=== PATIENT | female | born 1995 | race Caucasian/White ===

== ENCOUNTER 2017-11-02 12:52 | Emergency (ER) | payer SELFPAY ==
[2017-11-02 14:48] LABS: PLATELET COUNT 251 10^3/uL (150-400)
[2017-11-02] MEDS ORDERED: HYDROmorphONE/DILAUDID 1 MG/ML INJ IVP ONE (16:40)
[2017-11-02] MEDS ORDERED: ONDANSETRON 4 MG/2 ML VIAL IVP ONE (16:40)
--- NOTE | 2017-11-02 16:44 | EDPHY ---
H & P Time Seen by Provider: 11/02/17 14:51 HPI/ROS: HPI Lower abdominal pain. 22-year-old female, , by private vehicle with boyfriend. They are from [facility]. They currently live in [facility]. They are visiting this area. She presents with left lower quadrant pain which she describes as sharp and stabbing for the last 3 days. She has had some mild brownish vaginal spotting over the last 3 days. Her last menstrual period was September 28. She reports she gets her menstrual period every 5 weeks. No fever. No urinary complaints. She has had some mild nausea but no vomiting. ROS: Constitutional: No fever, no chills. No weakness. Eyes: No discharge. No changes in vision. ENT: No sore throat. No nasal congestion or rhinorrhea. Respiratory: No cough. No shortness of breath. Cardiac: No chest pain, no palpitations. Gastrointestinal: As above, no vomiting, no diarrhea. Genitourinary: No hematuria. No dysuria or increased frequency with urination. As above. Musculoskeletal: No back pain. No neck pain. No myalgias or arthralgias. Skin: No rashes. Neurological: No headache. No focal weakness or altered sensation. Past medical history: No significant past medical history. Social history: Nonsmoker. No alcohol. Here with her boyfriend. As above. Physical Exam: General Appearance: Alert, no distress. This patient is responding to questions appropriately and in full sentences. This patient appears well- hydrated and well-nourished. Eyes: Pupils equal and round no pallor or injection. No lid edema, erythema or injection. Respiratory: There are no retractions, lungs are clear to auscultation with good air movement bilaterally. Cardiovascular: Regular rate and rhythm. No murmur. Gastrointestinal: Abdomen is soft with moderate adnexal tenderness of the left lower quadrant, no masses, bowel sounds normal. No focal tenderness at McBurney 's point. No Swan sign. Neurological: Motor sensory function is grossly intact. Cranial nerves are normal. Gait is normal. Skin: Warm and dry, no rashes. Musculoskeletal: No CVA tenderness bilaterally. Extremities are symmetrical. All joints range without pain or impingement. Psychiatric: No agitation. No depression. Database: EKG: Imaging: Pelvic ultrasound: No evidence of IUP. No masses. The ovaries are unremarkable. The endometrium appears unusually thickened. Results were discussed with staff radiologist Dr. Ap Sanchez. CT scan of abdomen and pelvis with IV contrast: Significant for an intrauterine molar measuring 6 x 3.5 x 5 cm. Results were discussed with staff radiologist Dr. Ap Sanchez. Procedures: Emergency department course: Vital signs reviewed and are normal. She is afebrile. IV placed. She was started on IV normal saline. She was given 0.5 mg of IV hydromorphone for pain and 4 mg of IV Zofran for nausea. 6:00 p.m., spoke with on-call OBGYN Dr. Kitty Morgan. Case discussed in detail with her. Results of ultrasound discussed as well as excessively high beta HCG. Discussed likely foot of molar . Dr. Morgan is requesting CT imaging of the abdomen and pelvis with contrast enhancement. I discussed the reasoning for this study with the patient and her boyfriend. They consent. 7:15 p.m., spoke with on-call OBGYN Dr. Kitty Morgan. She reviewed the CT imaging. She agrees this is a molar . She has contacted [facility] and Dr. Ca Worrell. Plan will be to have the patient follow up in the office of Dr. Worrell on Sunday for evaluation and D and C by Dr. Worrell or [address] Morgan is concerned that significant bleeding may be a complication and she feels more comfortable if Dr. Worrell or Dr. Panchal performed the procedure. The patient has been stable throughout her emergency department course. No bleeding. Normal vital signs. Pain is well controlled. Abdomen has been soft on repeat exams. Dr. Morgan feels the patient can be safely discharged to home with follow-up on Sunday at [facility]. Strict return to emergency department precautions for vaginal bleeding and pain will be reviewed with the patient. 7:35 p.m., patient re-evaluated. Comfortable at this time. Repeat abdominal exam she is soft, with vague and mild tenderness left lower quadrant. Results of CT scan and plan of management as outlined above discussed with her and her boyfriend by echo vascular technologist. All of their questions were answered. She feels comfortable going home. She understands for follow-up. She understands return to emergency department precautions. She was discharged in good condition with her boyfriend. Differential Diagnosis: The differential diagnosis on this patient includes but is not limited to ectopic , recent completed . This represents a partial list of diagnoses considered. These considerations are based on history, physical exam, past history, reassessment and diagnostic testing. Smoking Status: Never smoked Constitutional: Initial Vital Signs Temperature (C) 36.9 C 11/02/17 13:13 Heart Rate 86 11/02/17 13:13 Respiratory Rate 18 11/02/17 13:13 Blood Pressure 114/73 11/02/17 13:13 O2 Sat (%) 99 11/02/17 13:13 O2 Delivery Mode Room Air Allergies/Adverse Reactions: No Known Allergies Allergy (Unverified 11/02/17 13:10) Home Medications: Medication Instructions Recorded Docusate Sodium [Colace 100 MG (*)] 100 mg PO TID #20 cap 11/02/17 Hydrocodone/APAP 5/325 [[place] 1 - 2 tab PO Q4-6PRN PRN #14 tab 11/02/17 5/325 (*)] Medical Decision Making - Data Points Laboratory Results: Laboratory Results 11/02/17 14:25 Medications Given: Discontinued Medications Hydromorphone HCl (Dilaudid) 0.5 mg IVP EDNOW ONE Stop: 11/02/17 16:41 Last Admin: 11/02/17 16:56 Dose: 0.5 mg Ondansetron HCl (Zofran) 4 mg IVP EDNOW ONE Stop: 11/02/17 16:41 Last Admin: 11/02/17 16:56 Dose: 4 mg Departure - Departure Disposition: Home, Routine, Self-Care Clinical Impression: Molar Condition: Good Instructions: Complete Hydatidiform Mole (ED) Additional Instructions: Read and follow provided instructions. Follow-up with [facility], either Dr. Worrell or Dr. Panchal as discussed on Sunday without fail for further evaluation and management. Call their office at 8:30 a.m. to 9:00 a.m. for appointment time. Take medication as prescribed for pain. Do not drive while taking this medication. Return to the emergency department immediately for worsening pain, vaginal bleeding, fever or other serious concerns. Gary y sigue las indicaciones siguientes: - Alva naomi kely de seguimiento con [facility], ya sea con la Dra. Worrell o Abdulkadir a pierre lo comentamos para el lunes por la maana sin falta para naomi evaluacion y manejo. Llama al consultorio de las 8:30 a 9:00 a.m. para hecer la kely. - Rosalva el medicamento a pierre te lo recetaron. No puedes conducir un auto mientras medicada. - Regresa a la dylan de emergencia inmediatamente si el dolor empeora, sangrado vaginal, fiebre u otras preocupaciones serias. Referrals: [facility] [Outside] - As per Instructions Ca Worrell MD [Medical Doctor] - As per Instructions Darshana Panchal MD [Medical Doctor] - As per Instructions Prescriptions: Docusate Sodium [Colace 100 MG (*)] 100 mg PO TID #20 cap Hydrocodone/APAP 5/325 [[place] 5/325 (*)] 1 - 2 tab PO Q4-6PRN PRN #14 tab PRN Reason: Pain, Moderate Print Language: Estonian
[2017-11-02] MEDS ORDERED: IOPAMIDOL (ISOVUE-300) 100 ML BTL ONE (17:41)
[2017-11-02 20:16] VITALS: BP 114/69; PULSE 71; RESP 18; TEMP 98.1; O2SAT 94
== END 2017-11-02 20:16 | disposition home or self-care (01) ==
DX: O02.0 Blighted ovum and nonhydatidiform mole (principal); Z3A.00 Weeks of gestation of pregnancy not specified
CPT/HCPCS: 96374; J1170; J2405; Q9967

== ENCOUNTER 2017-11-04 14:53 | Observation (INO) | payer SELFPAY ==
[2017-11-04] MEDS ORDERED: HYDROmorphONE/DILAUDID 1 MG/ML INJ ONE (15:18)
[2017-11-04] MEDS ORDERED: ONDANSETRON 4 MG/2 ML VIAL IVP ONE (15:19)
[2017-11-04] MEDS ORDERED: NS 1,000 ML IV ONE (15:19)
[2017-11-04] MEDS ORDERED: HYDROmorphONE/DILAUDID 1 MG/ML INJ IVP ONE (15:20)
--- NOTE | 2017-11-04 15:24 | EDPHY ---
H & P Time Seen by Provider: 11/04/17 15:02 HPI/ROS: HPI Lower abdominal pain. 22-year-old female by private vehicle with her boyfriend. I saw this patient on Sunday. She was diagnosed with a molar . Quantitative beta HCG at that time was 77,000. This molar was shown by CT scan to be within the uterus but here to the uterine wall. I spoke with OBGYN, Dr. joni Morgan at this time. Plan was going to be to have her follow up with Dr. Ca Worrell or Dr. Alcocer with [facility] on Sunday for a D and C. I prescribed her [place] for pain medication. Apparently she was not able to fill this prescription. She has been taking gacy-fuz-nvvvigl pain medication. She presents back to the emergency department now complaining of severe mid to left lower abdominal pain ROS: Constitutional: No fever, no chills. No weakness. Eyes: No discharge. No changes in vision. ENT: No sore throat. No nasal congestion or rhinorrhea. Respiratory: No cough. No shortness of breath. Cardiac: No chest pain, no palpitations. Gastrointestinal: As above, no vomiting, no diarrhea. Genitourinary: No hematuria. No dysuria or increased frequency with urination. Musculoskeletal: No back pain. No neck pain. No myalgias or arthralgias. Skin: No rashes. Neurological: No headache. No focal weakness or altered sensation. Past medical history: As above. Social history: Nonsmoker. No alcohol. Here with her boyfriend. Physical Exam: General Appearance: Alert, she appears uncomfortable. This patient is responding to questions appropriately and in full sentences. This patient appears well-hydrated and well-nourished. Eyes: Pupils equal and round no pallor or injection. No lid edema, erythema or injection. Respiratory: There are no retractions, lungs are clear to auscultation with good air movement bilaterally. Cardiovascular: Regular rate and rhythm. No murmur. Gastrointestinal: Abdomen is with left adnexal and mid lower suprapubic tenderness on palpation, no masses, bowel sounds normal. No focal tenderness at McBurney's point. No Swan sign. Neurological: Motor sensory function is grossly intact. Cranial nerves are normal. Gait is normal. Skin: Warm and dry, no rashes. Musculoskeletal: Neck is supple and nontender. Extremities are symmetrical. All joints range without pain or impingement. Psychiatric: No agitation. No depression. Database: EKG: Imaging: Pelvic ultrasound: No significant free fluid. No significant change from prior study 2 days ago. Results were discussed with staff radiologist Dr. Jose Johnson. Procedures: Emergency department course: IV was placed. Vital signs reviewed. Mildly tachypneic in triage. Vital signs otherwise normal. She is afebrile. She was started on IV normal saline with 1 L to be given over the next hour. She will be given IV hydromorphone for pain. She was also given 4 mg of IV Zofran for nausea. Repeat pelvic ultrasound will be obtained. Dr. Kitty MCNAIR who I spoke with regarding this patient on Sunday was paged. 4:05 p.m., spoke with XU Grace. She is coming to the emergency department now to evaluate this patient. 10 currently getting an ultrasound. Blood work reviewed. She is not anemic. 4:45 p.m., patient re-evaluated. Her pain is currently well controlled. Results of ultrasound and blood work discussed with her. Plan for admission and OBGYN consultation discussed with the patient using a vmware administrator. All of her questions were answered. 5:25 p.m., Dr. Morgan has seen and evaluated this patient. She will admit this patient and take her to the OR for D and C followed by further treatment if necessary. The patient has remained stable throughout her emergency department course. Her pain has been controlled. She was admitted under the care of Dr. Morgan in stable condition. Differential Diagnosis: The differential diagnosis on this patient includes but is not limited to molar , abdominal pain. Ectopic , ovarian torsion unlikely. This represents a partial list of diagnoses considered. These considerations are based on history, physical exam, past history, reassessment and diagnostic testing. Smoking Status: Never smoked Constitutional: Initial Vital Signs Temperature (C) 36.7 C 11/04/17 14:59 Heart Rate 99 11/04/17 14:59 Respiratory Rate 24 H 11/04/17 14:59 Blood Pressure 108/57 L 11/04/17 14:59 O2 Sat (%) 98 11/04/17 14:59 O2 Delivery Mode Room Air Allergies/Adverse Reactions: No Known Allergies Allergy (Verified 11/04/17 16:37) Home Medications: Medication Instructions Recorded Ibuprofen [Motrin (*)] 200 mg PO BID PRN 11/04/17 Medical Decision Making - Diagnostics Imaging Results: Imaging Impressions Pelvic/Renal Ultrasound 11/04/17 15:20 Impression: Persistent prominent heterogeneous endometrium with marketed hyperemia consistent with a molar . The emergency room physician is aware of this and an assembler has been consulted. Results called and discussed with Tera Hilton MD on November 04, 2017 at 1623 hours. - Data Points Laboratory Results: Laboratory Results 11/04/17 15:10 11/04/17 15:10 11/04/17 11/04/17 11/04/17 16:50 16:25 15:10 WBC RBC Hgb Hct MCV MCH MCHC RDW Plt Count MPV Neut % (Auto) Lymph % (Auto) Page % (Auto) Eos % (Auto) Baso % (Auto) Nucleat RBC Rel Count Absolute Neuts (auto) Absolute Lymphs (auto) Absolute Monos (auto) Absolute Eos (auto) Absolute Basos (auto) Absolute Nucleated RBC Immature Gran % Immature Gran # PT 15.6 SEC H SEC REJ (12.0-15.0) INR 1.22 H REJ (0.83-1.16) APTT 28.6 SEC SEC REJ (23.0-38.0) Sodium Potassium Chloride Carbon Dioxide Anion Gap BUN Creatinine Estimated GFR Glucose Calcium Total Bilirubin Conjugated Bilirubin Unconjugated Bilirubin AST ALT Alkaline Phosphatase Total Protein Albumin Beta HCG, Quant Patient ABO/Rh O POSITIVE Antibody Screen NEGATIVE 11/04/17 11/04/17 15:10 15:10 WBC 8.19 10^3/uL 10^3/uL (3.80-9.50) RBC 4.23 10^6/uL 10^6/uL (4.18-5.33) Hgb 12.7 g/dL g/dL (12.6-16.3) Hct 37.3 % L % (38.0-47.0) MCV 88.2 fL fL (81.5-99.8) MCH 30.0 pg pg (27.9-34.1) MCHC 34.0 g/dL g/dL (32.4-36.7) RDW 12.3 % % (11.5-15.2) Plt Count 260 10^3/uL 10^3/uL (150-400) MPV 9.1 fL fL (8.7-11.7) Neut % (Auto) 71.7 % % (39.3-74.2) Lymph % (Auto) 22.3 % % (15.0-45.0) Page % (Auto) 5.6 % % (4.5-13.0) Eos % (Auto) 0.1 % L % (0.6-7.6) Baso % (Auto) 0.2 % L % (0.3-1.7) Nucleat RBC Rel Count 0.0 % % (0.0-0.2) Absolute Neuts (auto) 5.86 10^3/uL 10^3/uL (1.70-6.50) Absolute Lymphs (auto) 1.83 10^3/uL 10^3/uL (1.00-3.00) Absolute Monos (auto) 0.46 10^3/uL 10^3/uL (0.30-0.80) Absolute Eos (auto) 0.01 10^3/uL L 10^3/uL (0.03-0.40) Absolute Basos (auto) 0.02 10^3/uL 10^3/uL (0.02-0.10) Absolute Nucleated RBC 0.00 10^3/uL 10^3/uL (0-0.01) Immature Gran % 0.1 % % (0.0-1.1) Immature Gran # 0.01 10^3/uL 10^3/uL (0.00-0.10) PT INR APTT Sodium 141 mEq/L mEq/L (135-145) Potassium 3.5 mEq/L mEq/L (3.5-5.2) Chloride 106 mEq/L mEq/L (97-110) Carbon Dioxide 24 mEq/l mEq/l (22-31) Anion Gap 11 mEq/L mEq/L (8-16) BUN 8 mg/dL mg/dL (7-23) Creatinine 0.6 mg/dL mg/dL (0.6-1.0) Estimated GFR > 60 Glucose 90 mg/dL mg/dL (70-100) Calcium 9.4 mg/dL mg/dL (8.5-10.4) Total Bilirubin 0.4 mg/dL mg/dL (0.1-1.4) Conjugated Bilirubin 0.2 mg/dL mg/dL (0.0-0.5) Unconjugated Bilirubin 0.2 mg/dL mg/dL (0.0-1.1) AST 31 IU/L IU/L (14-46) ALT 49 IU/L IU/L (9-52) Alkaline Phosphatase 53 IU/L IU/L (38-126) Total Protein 6.8 g/dL g/dL (6.3-8.2) Albumin 3.6 g/dL g/dL (3.5-5.0) Beta HCG, Quant 14886.00 mIU/mL H mIU/mL (0.00-4.83) Patient ABO/Rh Antibody Screen Medications Given: Discontinued Medications Doxycycline Hyclate (Doxycycline Hyclate) 100 mg PO ONCALL ONE PRN Reason: Protocol Stop: 11/04/17 17:21 Last Admin: 11/04/17 17:38 Dose: 100 mg Hydromorphone HCl (Dilaudid) 0.5 mg IVP EDNOW ONE Stop: 11/04/17 15:21 Last Admin: 11/04/17 15:23 Dose: 0.5 mg Sodium Chloride (Ns) 1,000 mls @ 0 mls/hr IV ONCE ONE; Wide Open PRN Reason: Protocol Stop: 11/04/17 15:20 Last Admin: 11/04/17 15:23 Dose: 1,000 mls Lactated Ringer's (Lr) 1,000 mls @ 0 mls/hr IV ONCALL ONE PRN Reason: TKO Stop: 11/04/17 17:21 Last Admin: 11/04/17 17:38 Dose: 1,000 mls Ondansetron HCl (Zofran) 4 mg IVP EDNOW ONE Stop: 11/04/17 15:20 Last Admin: 11/04/17 15:23 Dose: 4 mg Departure - Departure Disposition: [facility] Clinical Impression: Molar , Abdominal pain Condition: Fair
[2017-11-04 15:34] LABS: PLATELET COUNT 260 10^3/uL (150-400)
[2017-11-04] MEDS ORDERED: DOXYCYCLINE HYCLATE 100 MG CAP/TAB PO ONE (17:20)
[2017-11-04] MEDS ORDERED: ceFAZolin 2 GM/DEXTROSE 100 ML IV ONE (17:20)
[2017-11-04] MEDS ORDERED: LR 1,000 ML IV ONE (17:20)
[2017-11-04 17:34] LABS: INR 1.22 (0.83-1.16); PROTIME(PATIENT) 15.6 SEC (12.0-15.0)
[2017-11-04] MEDS ORDERED: LIDOCAINE 1% 300 MG/30 ML SDV ONE (17:34)
[2017-11-04] MEDS ORDERED: SILVER NITRATE APPLICATOR 1 APPL TP ONE (17:34)
[2017-11-04] MEDS ORDERED: DOXYCYCLINE HYCLATE 100 MG CAP/TAB ONE (17:36)
[2017-11-04] MEDS ORDERED: ceFAZolin 2 GM/SWFI 20 ML SYR IVP ONE (18:06)
[2017-11-04] MEDS ORDERED: ALBUTEROL 3 ML DEYVIAL IH PRN (18:14)
[2017-11-04] MEDS ORDERED: HYDROCODONE/APAP 5/325 TAB PO PRN ×2 (18:14→21:10)
[2017-11-04] MEDS ORDERED: NALOXONE HCL 0.4 MG/ML INJ IVP PRN (18:14)
[2017-11-04] MEDS ORDERED: ACETAMINOPHEN 500 MG TAB PO PRN (18:14)
[2017-11-04] MEDS ORDERED: PROMETHAZINE HCL 25 MG/ML INJ IVP PRN (18:14)
[2017-11-04] MEDS ORDERED: HYDROmorphONE/DILAUDID 1 MG/ML INJ IVP PRN (18:14)
[2017-11-04] MEDS ORDERED: fentaNYL 100 MCG/2 ML INJ IVP PRN (18:14)
[2017-11-04] MEDS ORDERED: OXYCODONE/APAP 5/325 TAB PO PRN (18:14)
[2017-11-04] MEDS ORDERED: ONDANSETRON 4 MG/2 ML VIAL IVP PRN (18:14)
--- NOTE | 2017-11-04 18:14 | PDANEPAE ---
ANE History of Present Illness D&C for molar ANE Past Medical History - Pulmonary History Hx Oxygen in Use at Home: No Hx Sleep Apnea: No - Endocrine History Hx Diabetes: No ANE Review of Systems Review of Systems: ANE Patient History - Allergies Allergies/Adverse Reactions: No Known Allergies Allergy (Verified 11/04/17 16:37) - Home Medications Home Medications: Ibuprofen [Motrin (*)] 200 mg PO BID PRN 11/04/17 [Last Taken 11/03/17] - NPO status NPO Since - Liquids (Date): 11/04/17 NPO Since - Liquids (Time): 11:00 NPO Since - Solids (Date): 11/04/17 NPO Since - Solids (Time): 11:00 - Smoking Hx Smoking Status: Never smoked ANE Labs/Vital Signs - Labs Result Diagrams: 11/04/17 15:10 11/04/17 15:10 - Vital Signs Blood Pressure: 106/60 Heart Rate: 73 Respiratory Rate: 16 O2 Sat (%): 96 Height: 163 cm Weight: 55 kg ANE Physical Exam - Airway Neck exam: FROM Mallampati Score: Class 2 Mouth exam: normal dental/mouth exam - Pulmonary Pulmonary: clear to auscultation - Cardiovascular Cardiovascular: regular rate and rhythym - ASA Status ASA Status: I, E ANE Anesthesia Plan Anesthesia Plan: GA w LMA
[2017-11-04] MEDS ORDERED: fentaNYL 100 MCG/2 ML INJ ONE ×2 (18:16→19:23)
[2017-11-04] MEDS ORDERED: PROPOFOL 200 MG/20 ML VIAL ONE (18:16)
[2017-11-04] MEDS ORDERED: LIDOCAINE 2% 5 ML SDV ONE (18:17)
[2017-11-04] MEDS ORDERED: DEXAMETHASONE 4 MG/ML VIAL ONE (18:30)
[2017-11-04] MEDS ORDERED: ONDANSETRON 4 MG/2 ML VIAL ONE (18:30)
[2017-11-04] MEDS ORDERED: RANITIDINE 50 MG/2 ML VIAL ONE (18:30)
[2017-11-04] MEDS ORDERED: ceFAZolin 2 GM/SWFI 2 GM/20 ML SYR IVP ONE (18:30)
--- NOTE | 2017-11-04 18:54 | GHP ---
[f rep st] PREOP HISTORY AND PHYSICAL DATE OF ADMISSION: 11/04/2017 The patient presents to the emergency room complaining of abdominal pain. The patient is a 22-year-old G1, P0, last menstrual period was approximately September 26, 2017 who presents to the emergency room today for complaints of left lower quadrant pain. The patient was seen in the emergency room on Sunday and had similar abdominal pain and was noted on ultrasound to have no adnexal masses, no intrauterine but to have some heterogeneous, hyperechoic material in the uterus. At that time, the quantitative hCG was 77,000. At that time, it was consistent with a molar . Again, on repeat ultrasound today, very similar ultrasound confirms no intrauterine , no adnexal mass, but uterus which appears to have some echogenic material. Quantitative hCG today has dropped down to 71,406. She states that her abdominal cramping started approximately and Sunday, at which time she came into the hospital on Sunday. Sunday was the first time that she a confirmed test. According to patient, she has never been before, no high-risk issues, no asthma, no diabetes, no heart problems, only breast surgery before for augmentation. Denies any allergies. PHYSICAL EXAMINATION: VITAL SIGNS: Stable. GENERAL: The patient appears alert, but slightly uncomfortable. CARDIOVASCULAR: Heart was regular rate and rhythm. No murmurs. ABDOMEN: With left adnexal, lower abdominal, and suprapubic tenderness. No mass. No abnormal bowel sounds. PELVIC: Speculum exam revealed cervix was closed. It revealed that she just had some brown mucous discharge, no blood. After speculum exam and bimanual exam took place, she did have some fundal uterine tenderness. The uterus appeared to be enlarged, approximately 15 weeks' size and anterior. There were no adnexal masses. SKIN: Dry and warm. EXTREMITIES: No abnormal range or tenderness in the calves. Labs WBC 8.19 H/H 12.7/37.3 plt 260 HCG 71,406 ASSESSMENT AND PLAN: A 22-year-old G1, P0, possible molar versus abnormal , no intrauterine . More than likely molar . Plan is to admit the patient to the hospital for a suction dilatation and curettage. Risks and benefits of procedure were thoroughly discussed with patient in Wallisian. Patient and agree. All questions were answered. /[id number]/MODL MTDD
--- NOTE | 2017-11-04 19:01 | POSTANESTH ---
Post Anesthetic Evaluation Cardiovascular Status: Normal, Stable Respiratory Status: Normal, Stable Level of Consciousness/Mental Status: Mildly Sleepy, Arousable Pain Control: Adequate, Prn Tx Ordered Nausea/Vomiting Control: Adequate, Prn Tx Ordered Complications Possibly Related to Anesthesia: None Noted
--- NOTE | 2017-11-04 19:07 | POSTOPPROG ---
Post Op Note Date of Operation: 11/04/17 Surgeon: Kitty Quintero Anesthesiologist: Dr. Petit Task Anesthesia: GET(General Endotracheal) Pre-op Diagnosis: Missed AB possible Molar Post-op Diagnosis: Same Indication: Low abdominal pain, spotting and enlarged uterus Procedure: Suction Dilation and Curettage Inf/Abcess present in the surg proc area at time of surgery?: No EBL: Minimal Total fluids administered: 700 mL Complications: none Specimen(s): Products of conception
--- NOTE | 2017-11-04 19:30 | GOP ---
[f rep st] OPERATIVE REPORT DATE OF OPERATION: 11/04/2017 SURGEON: Kitty Quintero MD ANESTHESIA: General. ANESTHESIOLOGIST: Damaso Patel DO. PREOPERATIVE DIAGNOSIS: 1. Missed . 2. Possible molar . POSTOPERATIVE DIAGNOSIS: 1. Missed . 2. Possible molar . PROCEDURE PERFORMED: Suction dilatation and curettage. FINDINGS: ESTIMATED BLOOD LOSS: Minimal, less than 50. INDICATIONS: Low abdominal pain, vaginal spotting, enlarged uterus, and elevated beta hCG level. DESCRIPTION OF PROCEDURE: The patient was taken to the operating room, where general anesthetic was placed. The patient was prepped and draped in the normal fashion and placed in the [facility]. A speculum was then placed within the vagina. The anterior lip of the cervix was then grasped with a tenaculum, and the cervix was then dilated to approximately 11 mm. An 11 mm suction curette was then placed within the intrauterine cavity, and all products were removed without difficulty. The suction cannula was then removed , and a curette was then placed within the intrauterine cavity. Curettage took place, and good cry was noted on all 4 sides. The uterus sounded to 9 cm before and after procedure. All instruments were then removed from the vagina. Minimal bleeding was noted. A red Bryan catheter was then placed within the bladder, and 200 cc of urine was removed. The patient was taken out of [facility] and went to recovery room in stable condition. Preliminary Pathology Molar INTRAVENOUS FLUIDS: 700. URINE OUTPUT: 200. /[id number]/MODL MTDD
[2017-11-04] MEDS ORDERED: IBUPROFEN 600 MG TAB PO PRN (21:10)
[2017-11-04] MEDS ORDERED: ZOLPIDEM TARTRATE 5 MG TAB PO PRN (21:11)
--- NOTE | 2017-11-04 21:14 | SOAPPROG ---
[facility] Progress Note Assessment/Plan: Assessment: Preliminary pathology Molar Plan: Discharge tomorrow Visiting will return to [facility] next week Close follow up of hcg levels Home on control pills Pain medication and ambien ordered 11/04/17 21:12 11/04/17 21:12 11/04/17 21:13 Subjective: No complaints routine post op care Objective: Vital Signs Temp Pulse Resp BP Pulse Ox 36.7 C 62 18 111/72 93 11/04/17 20:00 11/04/17 20:00 11/04/17 20:00 11/04/17 20:00 11/04/17 20:00 11/03/17 11/04/17 11/05/17 05:59 05:59 05:59 Intake Total 1800 Output Total 50 Balance 1750 PT 15.6 SEC (12.0-15.0) H 11/04/17 16:50 INR 1.22 (0.83-1.16) H 11/04/17 16:50 ICD10 Worksheet Patient Problems: Problems Problem Status Onset Abdominal pain Acute Molar Acute
[2017-11-04 23:57] VITALS: O2SAT 96
[2017-11-05 08:18] VITALS: BP 101/49; PULSE 83; RESP 16; TEMP 98.2
--- NOTE | 2017-11-05 14:05 | SOAPPROG ---
SOAP Progress Note Assessment/Plan: Assessment: 22 y/o PPD#1 s/p suction dilation and curettage secondary to molar . Plan: Pt is stable and can d/c home today. She is from [facility] and lives in [place] currently. We had a lengthy discussion about molar and the possible nature of invasion. The need for careful monitoring of BHCG levels, weekly until they fall to zero and then monthly x 6 months. We strongly discourage conceiving prior to 6 months from now. I will see her in my office on Sunday before they plan to leave [place] and will draw her first level. I asked Social Work to come to speak to her about ways to contacts resources in [place] and help to facilitate her follow-up with Surgical Services Assistant. 11/05/17 13:59 Subjective: Pt is without complaints now. She has minor cramping controlled with Ibuprofen. She has had minor spotting now. Objective: Vital Signs Temp Pulse Resp BP Pulse Ox 36.8 C 83 16 101/49 L 96 11/05/17 08:18 11/05/17 08:18 11/05/17 08:18 11/05/17 08:18 11/05/17 08:18 11/04/17 11/05/17 11/06/17 05:59 05:59 05:59 Intake Total 1800 Output Total 50 Balance 1750 PT 15.6 SEC (12.0-15.0) H 11/04/17 16:50 INR 1.22 (0.83-1.16) H 11/04/17 16:50 - Pending Discharge Pending Discharge Within 24 Hours: Yes Pending Discharge Date: 11/06/17 Pending Discharge Time: 11:00 Physical Exam - Physical Exam General Appearance: WD/WN, alert, no apparent distress Neck: non-tender, full range of motion, supple Respiratory: chest non-tender, lungs clear, normal breath sounds Cardiac/Chest: regular rate, rhythm Abdomen: normal bowel sounds, non-tender, soft Extremities: swelling (no), Jaqueline's sign (neg) ICD10 Worksheet Patient Problems: Problems Problem Status Onset Abdominal pain Acute Molar Acute
--- NOTE | 2017-11-05 18:05 | ASDISCHSUM ---
Discharge Information Plan Status:Has needs-TBD Medically Cleared to Leave:11/04/2017 Discharge Date:11/05/2017 04:00 PM CM D/C Disposition:Home, Routine, Self-Care ADT D/C Disposition:Home, Routine, Self-Care Projected Discharge Date:11/05/2017 04:00 PM Transportation at D/C:Family Discharge Delay Reason: Follow-Up Date:11/05/2017 04:00 PM Discharge Slot: Final Diagnosis:Molar Placement Information Patient Contact Information Contact Name:ANGELITA Relationship: Address:[address] Work Phone: [facility] Alternate Phone: State/Zip Code:[place] [address] Email: Financial Information Financial Class:Self-Pay Primary Plan Desc:SELF PAY Primary Plan Number: Secondary Plan Desc: Secondary Plan Number: Assessment Information Case Management Discharge Plan Note Case Management Discharge Discharge Order Complete? Answers: Yes Patient to Obtain Answers: via Family Medications Transportation Arranged Answers: Family/Friends Transport will Pick (Date 11/05/2017 04:30 PM & Time) Family Notified Answers: Yes Notes: present Discharge Comments Notes: 22 year old Uzbek speaking female admitted for a molar . She will be returning to [facility] Sunday for lab draws. She needs to have weekly lab draws monitoring BHCG levels. Patient and her live in [place] and from [facility]. They are applying for citizenship. They have friends that go to the [facility]: [address] [address], [place] [phone]; . CM to contact the Health Center tomorrow and will try to get an appt for patient to be seen next Sunday by an [employer] Sales Counter Manager. Her chart info will be faxed to them tomorrow. CM will contact and let him know appt time. Date Signed: 11/05/2017 06:04 PM Electronically Signed By:Luz Galindo LCSW Intervention Information
== END 2017-11-05 16:00 | disposition home or self-care (01) ==
LOC: INTOOBSV 17:24 → OBSVTOIN 17:24 → FOB 20:00
PROVIDERS: ADMIT Obstetrics & Gynecology; ATTEND Obstetrics & Gynecology
PROC: 10D17ZZ Extraction of Products of Conception, Retained, Via Natural or Artificial Opening (ICD-10-PCS; principal; 2017-11-04 18:00)
DX: O02.1 Missed abortion (principal)
CPT/HCPCS: 88233-90; 96374; G0378; J0171; J0690; J1100; J1170; J2405; J2704; J2780; J3010